=== PATIENT | female | born 1955 | race Caucasian/White ===

== ENCOUNTER 2022-02-01 11:02 | Emergency (ER) | payer BC ==
[2022-02-01] MEDS ORDERED: cefTRIAXone 1 GM Vial ONE (13:33)
[2022-02-01] MEDS ORDERED: Sulfamethoxazole/Trimethoprim 800-160 MG Tab ONE (14:30)
[2022-02-01 22:41] VITALS: BP 146/75; PULSE 88
[2022-02-02] MEDS ORDERED: cefTRIAXone 1 GM Vial IM ONE (13:47)
== END 2022-02-01 14:34 | disposition home or self-care (01) ==
LOC: LB.ED 11:02
DX: N76.4 Abscess of vulva (principal)
CPT/HCPCS: 56420; 96372; 99282-25; A9270-GY; J0696

== ENCOUNTER 2024-01-05 11:03 | Day surgery (SDC) | payer MEDICARE ==
[~2024-01-05 11:03] MED LIST: Metoclopramide 10 MG/2 ML SDV IV PRN
[2024-01-05] MEDS: Sodium Chloride 0.9% 1,000 ML IV SCH (11:35)
[2024-01-05] MEDS ORDERED: Lidocaine 1% 30 ML SDV ONE (13:00)
[2024-01-05 13:24] VITALS: BP 118/81; PULSE 59
== END 2024-01-05 14:05 | disposition home or self-care (01) ==
LOC: LB.SDS 11:03
PROVIDERS: ATTEND Surgery
DX: Z12.11 Encounter for screening for malignant neoplasm of colon (principal); K57.30 Diverticulosis of large intestine without perforation or abscess without bleeding; I10 Essential (primary) hypertension
CPT/HCPCS: J2704; J7030